=== PATIENT | male | born 1935 | race Caucasian/White ===

== ENCOUNTER → 2016-09-05 | Outpatient (CLI) | payer MEDICARE, MEDICAID | LOC: MW.CHPOD 08:00 | PROVIDERS: ATTEND Podiatrist Foot & Ankle Surgery | DX: R26.9 Unspecified abnormalities of gait and mobility (principal); M21.961 Unspecified acquired deformity of right lower leg; M21.962 Unspecified acquired deformity of left lower leg; M20.60 Acquired deformities of toe(s), unspecified, unspecified foot; B35.1 Tinea unguium; I73.9 Peripheral vascular disease, unspecified; I83.90 Asymptomatic varicose veins of unspecified lower extremity; M79.673 Pain in unspecified foot; L85.1 Acquired keratosis [keratoderma] palmaris et plantaris | CPT/HCPCS: 11056; 11721; G0463 ==

== ENCOUNTER → 2016-09-17 | Outpatient (CLI) | payer MEDICARE, MEDICAID | LOC: MW.CHPS 08:00 | PROVIDERS: ATTEND Plastic Surgery | DX: L82.0 Inflamed seborrheic keratosis (principal) | CPT/HCPCS: 17110 ==